=== PATIENT | male | born 1970 | race Caucasian/White ===

== ENCOUNTER 2017-06-17 09:46 | Outpatient (CLI) | payer OTHER ==
[2017-06-17 10:58] LABS: BASOPHILS % 0.9 (0.0-1.5); EOSINOPHILS % 2.4 % (0.0-6.8); MEAN CORPUSCULAR HEMOGLOBIN 31.3 pg (28.0-34.0); MEAN CORPUSCULAR VOLUME 94.5 fl (80.0-100.0); MONOCYTES % 7.6 % (0.0-11.0); NEUTROPHILS # 7.1 # k/uL (1.4-7.7)
[2017-06-17 11:04] LABS: eGFR (African) > 60; eGFR (Non-African) > 60
== END 2017-06-17 09:47 ==
LOC: LAB 09:46
PROVIDERS: ATTEND General Practice
DX: L03.90 Cellulitis, unspecified (principal)
CPT/HCPCS: 36415; 80053; 83880; 85025; 85379